=== PATIENT | male | born 1930 | race Caucasian/White ===

== ENCOUNTER 2018-04-02 18:27 | Inpatient (IN) | payer MEDICARE, BC ==
[~2018-04-02] VITALS: Ht 175.3 cm; Wt 64.0 kg
--- NOTE | 2018-04-02 18:45 | Emergency Room Report ---
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 Allergies: Coded Allergies: No Known Allergies (Unverified , 04/02/18) Patient History Past Medical History: see triage record Reviewed Nursing Documentation: PMH: Agreed; PSxH: Agreed Nursing Documentation-PMH Hx Hypertension: Yes Hx Diabetes: Yes Hx Dialysis: Yes - M-W-F Last 04/02/18 Review of Systems All Other Systems: negative except mentioned in HPI Physical Exam Vital Signs Date Time Temp Pulse Resp B/P (MAP) Pulse Ox O2 Delivery O2 Flow Rate FiO2 04/02/18 18:26 97.5 57 18 122/49 99 Room Air Sp02 EP Interpretation: reviewed, normal General Appearance: no apparent distress, alert, non-toxic Head: normocephalic Eyes: bilateral eye normal inspection, bilateral eye PERRL, bilateral eye EOMI ENT: normal ENT inspection, hearing grossly normal, normal pharynx, no angioedema, normal voice, moist mucus membranes Neck: normal inspection, full range of motion, supple, supple/symm/no masses Respiratory: chest non-tender, lungs clear, normal breath sounds, chest symmetrical, palpation of chest normal Cardiovascular #1: normal peripheral pulses, regular rate, rhythm Cardiovascular #2: 2+ radial (R), 2+ radial (L) Gastrointestinal: normal inspection, non tender, soft, no mass, no guarding, no rebound Rectal: deferred Genitourinary: normal inspection, no CVA tenderness Musculoskeletal: back normal, gait/station normal, normal range of motion, non- tender, no calf tenderness, Mireille's Sign negative, other - LUE AVF + thrill Neurologic: alert, responsive, 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 EKG Diagnostic Results EKG Time: 18:41 EP Interpretation: no st-t changes, no twi's Rhythm: NSR ST Segments: no acute changes Rhythm Strip Diag. Results Rhythm Strip Time: 18:45 EP Interpretation: yes Rate: 60 Rhythm: NSR, no PVC's, no ectopy Chest X-Ray Diagnostic Results Chest X-Ray Diagnostic Results : # of Views/Limited/Complete: 1 View Indication: Other - syncope EP Interpretation: Yes Interpretation: no consolidation, no effusion, no pneumothorax, no acute cardiopulmonary disease Impression: No acute disease Electronically Signed by: Angela Alvarado MD Last Vital Signs Date Time Temp Pulse Resp B/P (MAP) Pulse Ox O2 Delivery O2 Flow Rate FiO2 04/02/18 18:26 97.5 57 18 122/49 99 Room Air Disposition: ADMITTED INPATIENT Condition: Stable ANGELA ALVARADO M.D Apr 02, 2018 18:45
[2018-04-02] MEDS ORDERED: METOPROLOL TART25 MG ORAL (19:05)
[2018-04-02] MEDS ORDERED: DONEPEZIL HCL10 M2 ORAL (19:05)
[2018-04-02] MEDS ORDERED: CARDIAZEM CD240 MG PO (19:05)
[2018-04-02] MEDS ORDERED: vit D3 PO (19:05)
[2018-04-02] MEDS ORDERED: protegra PO (19:05)
[2018-04-02] MEDS ORDERED: HUMALOG SS (19:05)
[2018-04-02] MEDS ORDERED: ECONAZOLE NITRAT5 GM MC (19:05)
[2018-04-02] MEDS ORDERED: NEPHROVITE1 TAB ORAL (19:05)
[2018-04-02] MEDS ORDERED: OMEPRAZOLE40 M1 ORAL (19:05)
[2018-04-02] MEDS ORDERED: NYSTATIN15 GM TOPIC (19:05)
[2018-04-02] MEDS ORDERED: ATORVASTATIN CA20 MG ORAL (19:05)
[2018-04-02] MEDS ORDERED: TAMSULOSIN HCL0.4 MG ORAL (19:05)
[2018-04-02] MEDS ORDERED: LANTUS SOL100 UNIT/1 SUBQ (19:05)
[2018-04-02] MEDS ORDERED: PENTOXIFYLLINE400 MG ORAL (19:05)
[2018-04-02] MEDS ORDERED: ONDANSETRON ODT4 MG BC (19:05)
[2018-04-02] MEDS ORDERED: ADALAT CC30 MG ORAL (19:05)
[2018-04-02] MEDS ORDERED: TRIAMCINOLONE10 G1 MC (19:05)
[2018-04-02] MEDS ORDERED: FLUOCINONIDE-E15 G1 TP (19:05)
[2018-04-02] MEDS ORDERED: BRILINTA90 MG PO (19:05)
[2018-04-02] MEDS ORDERED: NORCO 5-325 TA1 EACH ORAL (19:05)
[2018-04-02] MEDS ORDERED: GLUCOSAMINE &1 EAC2 PO (19:05)
[2018-04-02] MEDS ORDERED: ESCITALOPRAM OX20 MG ORAL (19:05)
[2018-04-02] MEDS ORDERED: ASPIR 8181 MG ORAL (19:05)
[2018-04-02 19:53] LABS: BASOPHILS % (AUTO) 1.1 % (0.0-2.0); EOSINOPHILS % (AUTO) 7.2 % (0.0-3.0); HEMATOCRIT 38.4 % (42.0-52.0); HEMOGLOBIN 12.5 G/DL (14.2-18.0); LYMPHOCYTES % (AUTO) 10.2 % (20.0-45.0); MEAN CORPUSCULAR VOLUME 96 FL (80-99); MONOCYTES % (AUTO) 9.3 % (1.0-10.0); NEUTROPHILS % (AUTO) 72.2 % (45.0-75.0); PLATELET COUNT 129 K/UL (150-450); RED BLOOD COUNT 4.01 M/UL (4.70-6.10); RED CELL DISTRIBUTION WIDTH 14.8 % (11.6-14.8); WHITE BLOOD COUNT 8.6 K/UL (4.8-10.8)
[2018-04-02 20:13] LABS: ANION GAP 14 mmol/L (5-15); BLOOD UREA NITROGEN 23 mg/dL (7-18); CALCIUM 9.1 MG/DL (8.5-10.1); CARBON DIOXIDE 25 MMOL/L (21-32); CHLORIDE 98 MMOL/L (98-107); CREATININE 3.3 MG/DL (0.55-1.30); POTASSIUM 4.4 MMOL/L (3.5-5.1); SODIUM 137 MMOL/L (136-145)
[2018-04-02 20:26] LABS: ALANINE AMINOTRANSFERASE 31 U/L (12-78); ALBUMIN 3.7 G/DL (3.4-5.0); ALBUMIN/GLOBULIN RATIO 0.9 (1.0-2.7); ALKALINE PHOSPHATASE 60 U/L (46-116); ASPARTATE AMINO TRANSFERASE 25 U/L (15-37); BILIRUBIN,TOTAL 0.5 MG/DL (0.2-1.0); CKMB 0.5 NG/ML (0.0-3.6); CREATINE KINASE 38 U/L (26-308)
[2018-04-02 20:30] VITALS: BP 124/57
[2018-04-02] MEDS ORDERED: Isovue-370 150ml vial INJ PRN (21:30)
[2018-04-02 22:15] VITALS: BP 124/87
[2018-04-03] VITALS (9 sets, daily range): BP systolic 111–141; BP diastolic 52–73
[2018-04-03] MEDS ORDERED: NovoLOG Insulin Flexpen SUBQ SCH (06:30)
[2018-04-03] MEDS: NovoLOG Insulin Flexpen SUBQ SCH ×4 (06:46→22:48)
[2018-04-03] MEDS: Aspirin Baby 81mg ORAL SCH (08:46)
[2018-04-03] MEDS ORDERED: Metoprolol Succinate XL 50mg tab ORAL SCH (09:00)
--- NOTE | 2018-04-03 09:23 | Diagnostic Imaging Report ---
Indication: Chest pain Technique: One view of the chest Comparison: none Findings: No acute infiltrates, effusions, or congestion. Tortuous calcified aorta. Normal heart size. Upper mediastinum unremarkable. Impression: No acute process.
--- NOTE | 2018-04-03 10:10 | Diagnostic Imaging Report ---
ndication: Shortness of breath Technique: IV administration nonionic contrast. Spiral acquisitions obtained from the lung bases to the lung apices. Multiplanar and 3-D reconstructions were generated. Total dose length product 693 mGycm. CTDIvol(s) 18.62 mGy. Dose reduction achieved using automated exposure control Comparison: none Findings: There is slight image degradation due to motion artifact. There is good quality opacification of the pulmonary arteries. No intraluminal filling defects or other findings to suggest acute pulmonary embolus are demonstrated. No pulmonary arterial dilatation demonstrated. No thoracic aortic aneurysm or dissection. No right ventricular dilatation. Classic branching anatomy of the great neck vessels is noted. There is equivocal thickening of the major fissure on the left. There is some scarring at both lung bases. No acute infiltrates, effusions, masses, nodules, or congestion. There is mild hyperinflation. A bulla is seen in the subpleural right middle lobe. Mildly prominent reticular opacities are seen in the right lung apex subpleural region. Normal heart size. There is trace pericardial thickening versus fluid anteriorly. No mediastinal or hilar mass or adenopathy. Unremarkable thyroid. No axillary or chest wall mass or adenopathy. Included upper abdominal anatomy demonstrates cholecystectomy clips. Impression: Negative for acute pulmonary embolus or other acute pulmonary pathology Nonspecific trace right upper lobe subpleural reticular opacities, could indicate acute infection or chronic postinflammatory changes Other chronic changes, as described COPD changes Trace pericardial thickening versus fluid Evidence of prior cholecystectomy This agrees with the preliminary interpretation provided overnight by [facility] teleradiology service. The CT scanner at [facility] is accredited by the [employer] and the scans are performed using protocols designed to limit radiation exposure to as low as reasonably achievable to attain images of sufficient resolution adequate for diagnostic evaluation.
[2018-04-03 10:24] LABS: BASOPHILS % (AUTO) 1.2 % (0.0-2.0); HEMATOCRIT 35.7 % (42.0-52.0); HEMOGLOBIN 11.7 G/DL (14.2-18.0); LYMPHOCYTES % (AUTO) 20.2 % (20.0-45.0); MEAN CORPUSCULAR VOLUME 99 FL (80-99); MONOCYTES % (AUTO) 10.2 % (1.0-10.0); NEUTROPHILS % (AUTO) 57.3 % (45.0-75.0); PLATELET COUNT 146 K/UL (150-450); RED BLOOD COUNT 3.59 M/UL (4.70-6.10); WHITE BLOOD COUNT 6.8 K/UL (4.8-10.8)
[2018-04-03 11:01] LABS: ALANINE AMINOTRANSFERASE 27 U/L (12-78); ALBUMIN 3.4 G/DL (3.4-5.0); ALBUMIN/GLOBULIN RATIO 0.9 (1.0-2.7); ALKALINE PHOSPHATASE 58 U/L (46-116); ANION GAP 13 mmol/L (5-15); ASPARTATE AMINO TRANSFERASE 16 U/L (15-37); BILIRUBIN,TOTAL 0.3 MG/DL (0.2-1.0); BLOOD UREA NITROGEN 34 mg/dL (7-18); CARBON DIOXIDE 26 MMOL/L (21-32); CHLORIDE 97 MMOL/L (98-107); CREATININE 4.4 MG/DL (0.55-1.30); POTASSIUM 4.7 MMOL/L (3.5-5.1); SODIUM 136 MMOL/L (136-145)
--- NOTE | 2018-04-03 16:01 | Cardiology Report ---
APPROVED REPORT EKG Measurement Heart [id number] Sinus bradycardia Prolonged QT Abnormal ECG
[2018-04-03] MEDS: Atorvastatin 20mg tab ORAL SCH ×2 (21:00→22:47)
[2018-04-03] MEDS: Tamsulosin 0.4mg cap ORAL SCH ×2 (21:00→22:46)
[2018-04-03] MEDS ORDERED: Levemir Flexpen SUBQ SCH (21:00)
[2018-04-04] VITALS (7 sets, daily range): BP systolic 117–161; BP diastolic 58–75
--- NOTE | 2018-04-04 00:15 | Consultation ---
DATE OF CONSULTATION: 04/03/2018 NEPHROLOGY CONSULTATION CONSULTING PHYSICIAN: Zachary Argueta M.D. REFERRING PHYSICIAN: Krishan Morales M.D. REASON FOR CONSULTATION: End-stage renal disease. HISTORY OF PRESENT ILLNESS: The patient is an 87-year-old male who gets dialysis on Monday, Monday, and Monday, and Monday after dialysis in the evening, he said he felt sort of dizzy, staggering, and weak, and paramedics were called and he was brought to the emergency room. It is not clear if he had any true syncope apparently, he thinks he did not pass out. However, in view of the above, he was admitted to the hospital for further evaluation. He denies chest pain, palpitations, shortness of breath, nausea, or vomiting. ALLERGIES: None known. SURGERIES: Appendectomy and gallbladder. He also had "vein procedures on his wrist and groin, but he cannot describe." HABITS: He is a nondrinker and nonsmoker at this time. MEDICATIONS AT HOME: Reviewed on the computer. He cannot give it to me include aspirin, atorvastatin, diltiazem, donepezil, econazole cream, Lexapro, fluocinonide cream, glucosamine chondroitin, [place], Lantus 7 units, metoprolol, nifedipine, Nystatin, omeprazole, ondansetron, pentoxifylline, tamsulosin, Brilinta, triamcinolone, Nephro-Gi. SYSTEM REVIEW: HEAD, EYES, EARS, NOSE, AND THROAT: He has diminished hearing. He says his vision is good. ENDOCRINE: History of diabetes. No known thyroid disease. PULMONARY: No asthma, TB, or chronic cough. CARDIAC: Denies angina or [place]. He may have had procedures for peripheral vascular disease. GASTROINTESTINAL: No nausea, vomiting, or abdominal pain. No known hepatitis. GENITOURINARY: No dysuria or hematuria. NEUROLOGIC: No CVA or seizures. MUSCULOSKELETAL: No chronic joint pain. He uses a cane periodically. PHYSICAL EXAMINATION: GENERAL: The patient is alert, thin man, in no acute distress. VITAL SIGNS: Temperature 98.4, blood pressure 111/52, O2 saturation 99%, heart rate 75. HEAD, EYES, EARS, NOSE, AND THROAT: Sclerae are nonicteric. Ocular motions intact in all directions. Oral mucosa slightly dry. NECK: No adenopathy or thyroid enlargement. LUNGS: Clear. HEART: Rhythm is regular. I hear no murmur. ABDOMEN: Soft without organomegaly or masses. EXTREMITIES: No edema, cyanosis, or clubbing. There is a well-functioning AV fistula on the left upper arm. NEUROLOGIC: He is alert and responsive. Ocular motions intact in all directions. Smile symmetric. Tongue is midline. He moves all extremities. Plantar showed no response. Speech is clear. LABORATORY AND DIAGNOSTIC DATA: Pertinent laboratory show white count of 6.8 and hemoglobin of 11.7. Sodium 136, potassium 4.7, BUN 34, and creatinine 4.4. Troponin x2 is negative. Albumin is 3.4. Liver enzymes are normal. Glucose 171 and 112. IMPRESSION: 1. Dizziness, possible syncope or near syncope. Etiologies could be orthostatic hypotension, hypoglycemia, arrhythmias, or coronary artery disease. 2. End-stage renal disease. 3. Likely history of peripheral vascular disease. 4. Diabetes. 5. Advanced age. PLAN: The patient will be watched closely for any cardiac disease, orthostatic hypotension, and diabetic management. I will arrange dialysis for maintenance. Zachary Argueta M.D. : CARMEN JOB#: [id number] CC:
--- NOTE | 2018-04-04 01:30 | Progress Note ---
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 Blood pressure parameters remain low normal range, off most of his usual medications. No pauses or bradyarrhythmias. PHYSICAL EXAMINATION: VITAL SIGNS: Blood pressure 130/65, pulse 75, and respirations 20. NECK: Carotid upstrokes without delay. No bruits. LUNGS: Clear. CARDIAC: Regular rhythm rate. Normal S1, S2 with a 1/6 systolic murmur at the base. ABDOMEN: Soft. EXTREMITIES: No edema. LABORATORY DATA: White count 6.8, hemoglobin 11.7. BUN 34, creatinine 4.4. Troponin negative. TSH 2.8. IMPRESSION: 1. Orthostatic syncope due to medications. 2. End-stage renal disease. 3. Hypertensive heart disease. 4. Coronary artery disease with stable angina and history of coronary stent. 5. Hyperlipidemia, on statin drug. PLAN: 1. Continue dual anti-platelet therapy, statin drug. 2. Check lipid panel. 3. Continue holding nifedipine and diltiazem, and titrate regimen accordingly. 4. Monitor orthostatics. 5. Hemodialysis with ultrafiltration per usual schedule tomorrow and reassess medication regimen. Krishan Morales M.D. DR: SHERIDAN JOB#: [id number] CC:
[2018-04-04] MEDS: Levemir Flexpen SUBQ SCH ×2 (01:34→20:24)
--- NOTE | 2018-04-04 01:45 | History and Physical Report ---
DATE OF ADMISSION: 04/03/2018 REASON FOR ADMISSION: Syncope in the setting of end-stage renal disease. HISTORY OF PRESENT ILLNESS: This is an 87-year-old white male. He has end-stage renal disease and is on hemodialysis on Monday, Monday, and Monday. He had a syncopal episode today, which is described as a dizzy spell one. He was walking to the table. He apparently sat down at the table and passed out, but did not fall down or hurt himself. He was transiently after dialysis today, but denies any other associated symptoms. He specifically denies chest pain or shortness of breath. He does take a multitude of blood pressure medications and has been compliant. He was seen in the emergency room, hospitalization was initiated. PAST MEDICAL HISTORY: Includes hypertension, type 2 diabetes mellitus, end-stage renal disease, and coronary artery disease with history of coronary stent. ALLERGIES: None known. MEDICATIONS: Reviewed and reconciled. SOCIAL HISTORY: He denies smoking, alcohol, or substance abuse. FAMILY HISTORY: Noncontributory. REVIEW OF SYSTEMS: No fevers. No loss of vision or hearing. No history of retinopathy. No prior history of myocardial infarction. His blood pressure has been difficult to control in the past. He does have high cholesterol. He is on oral therapy for diabetes. There is no history of seizure or stroke. He denies any melena, bright red blood per rectum, or change in bowel habits. There is a history of prostatic hypertrophy. PHYSICAL EXAMINATION: VITAL SIGNS: Blood pressure 122/49, pulse 57, respirations 18, and afebrile. HEENT: Conjunctivae are pink. Sclerae are anicteric. Oropharynx clear. NECK: Supple. Jugular venous pressure normal. No bruits. LUNGS: Clear. CARDIAC: Regular rhythm and rate. Normal S1 and S2 with a fourth heart sound. There is a 1/6 systolic murmur at the base. ABDOMEN: Soft and nontender. EXTREMITIES: Good pulses. No edema. There is a palpable bruit over the dialysis fistula. NEUROLOGIC: Reveals symmetric strength. No motor deficit. IMAGING DATA: CT angiogram of the chest was obtained in the emergency room that study revealed COPD, negative for pulmonary embolus, right upper lobe reticular opacities, prior cholecystectomy. EKG with sinus rhythm, nonspecific ST-T wave changes. LABORATORY DATA: White count 8.6 and hemoglobin 12.5. Sodium 137, potassium 4.4, bicarbonate 25, BUN 23, creatinine 3.3, and glucose 171. Troponin 0. IMPRESSION: 1. Syncopal episode, probable orthostatic in etiology and likely due to multiple antihypertensive drugs in setting of post hemodialysis related hypovolemia. 2. Insulin-requiring diabetes mellitus. 3. Hyperlipidemia, on statin drug. 4. Sinus bradycardia, on beta-sy. 5. Peripheral artery disease. 6. Coronary artery disease with history of coronary stent with chronic stable angina. 7. Cerebrovascular disease. PLAN: 1. Orthostatic monitoring. 2. Cardiac monitoring. 3. Renal consult for hemodialysis. 4. Hold nifedipine. 5. Hold parameters for metoprolol based on heart rate. 6. Titrate insulin. 7. Hold diltiazem. 8. Continue statin drug. 9. Check lipid panel. 10. Continue dual anti-platelet therapy. 11. Reassess [place]. Krishan Morales M.D. DR: NAKIA JOB#: [id number] CC:
[2018-04-04] MEDS ORDERED: Heparin Sod 1000 units/ml 10ml IV PRN (06:00)
[2018-04-04] MEDS: NovoLOG Insulin Flexpen SUBQ SCH ×4 (07:06→20:24)
[2018-04-04 08:00] LABS: BASOPHILS % (AUTO) 1.2 % (0.0-2.0); HEMATOCRIT 36.3 % (42.0-52.0); HEMOGLOBIN 11.9 G/DL (14.2-18.0); LYMPHOCYTES % (AUTO) 29.1 % (20.0-45.0); MEAN CORPUSCULAR VOLUME 99 FL (80-99); MONOCYTES % (AUTO) 9.8 % (1.0-10.0); NEUTROPHILS % (AUTO) 45.9 % (45.0-75.0); PLATELET COUNT 167 K/UL (150-450); RED BLOOD COUNT 3.67 M/UL (4.70-6.10); RED CELL DISTRIBUTION WIDTH 14.5 % (11.6-14.8); WHITE BLOOD COUNT 6.6 K/UL (4.8-10.8)
[2018-04-04 08:12] LABS: ANION GAP 12 mmol/L (5-15); BLOOD UREA NITROGEN 47 mg/dL (7-18); CALCIUM 8.9 MG/DL (8.5-10.1); CARBON DIOXIDE 25 MMOL/L (21-32); CHLORIDE 100 MMOL/L (98-107); CREATININE 5.5 MG/DL (0.55-1.30); POTASSIUM 4.6 MMOL/L (3.5-5.1); SODIUM 137 MMOL/L (136-145)
[2018-04-04] MEDS: Aspirin Baby 81mg ORAL SCH (08:14)
[2018-04-04] MEDS: Metoprolol Succinate XL 50mg tab ORAL SCH (08:16)
[2018-04-04 08:45] LABS: CHOLESTEROL 156 MG/DL (< 200); HDL CHOLESTEROL 52 MG/DL (40-60); TRIGLYCERIDES 155 MG/DL (30-150)
--- NOTE | 2018-04-04 16:18 | Nephrology Progress Note ---
Assessment/Plan Problem List: (1) Diabetes (2) End-stage renal disease (3) Syncope Plan feels better, stable on dialysis, uf -1000 Subjective Constitutional: Reports: weakness HEENT: Reports: no symptoms Genitourinary: Reports: no symptoms Neurologic/Psychiatric: Reports: no symptoms Objective Objective Last 24 Hour Vital Signs Date Time Temp Pulse Resp B/P (MAP) Pulse Ox O2 Delivery O2 Flow Rate FiO2 04/04/18 13:08 129/74 04/04/18 12:00 70 04/04/18 12:00 97.2 70 18 129/74 (92) 98 04/04/18 09:00 Room Air 04/04/18 08:16 88 139/75 04/04/18 08:14 139/75 04/04/18 08:00 71 04/04/18 08:00 98.6 88 18 139/75 (96) 96 04/04/18 04:20 68 04/04/18 04:10 73 04/04/18 04:05 86 04/04/18 04:00 88 04/04/18 04:00 98.9 88 18 117/59 (78) 97 04/04/18 00:11 85 04/04/18 00:00 98.2 79 18 151/69 (96) 97 04/04/18 00:00 79 04/03/18 21:00 Room Air 04/03/18 20:00 81 04/03/18 20:00 98.7 81 18 141/73 (95) 96 04/03/18 19:52 87 04/03/18 18:04 111/52 Intake and Output 04/03/18 04/04/18 19:00 07:00 Intake Total 740 ml Balance 740 ml Intake Oral 740 ml # Voids 3 2 Laboratory Tests 04/04/18 06:15: White Blood Count 6.6, Red Blood Count 3.67L, Hemoglobin 11.9L, Hematocrit 36.3L , Mean Corpuscular Volume 99, Mean Corpuscular Hemoglobin 32.5H, Mean Corpuscular Hemoglobin Concent 32.8, Red Cell Distribution Width 14.5, Platelet Count 167, Mean Platelet Volume 7.3, Neutrophils (%) (Auto) 45.9, Lymphocytes (% ) (Auto) 29.1, Monocytes (%) (Auto) 9.8, Eosinophils (%) (Auto) 14.0H, Basophils (%) (Auto) 1.2, Sodium Level 137, Potassium Level 4.6, Chloride Level 100, Carbon Dioxide Level 25, Anion Gap 12, Blood Urea Nitrogen 47H, Creatinine 5.5H, Estimat Glomerular Filtration Rate , Glucose Level 120H, Calcium Level 8.9 , Pro-B-Type Natriuretic Peptide 2789H, Triglycerides Level 155H, Cholesterol Level 156, LDL Cholesterol 82, HDL Cholesterol 52, Cholesterol/HDL Ratio 3.0L Height (Feet): 5 Height (Inches): 9.00 Weight (Pounds): 141 General Appearance: no apparent distress, alert EENT: normal ENT inspection Neck: normal alignment, supple Cardiovascular: normal rate, regular rhythm Respiratory/Chest: lungs clear Abdomen: non tender, soft Extremities: non-tender 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
[2018-04-04] MEDS: Atorvastatin 20mg tab ORAL SCH (20:21)
[2018-04-04] MEDS: Tamsulosin 0.4mg cap ORAL SCH (20:21)
[2018-04-04] MEDS ORDERED: Levemir Flexpen SUBQ SCH (21:00)
--- NOTE | 2018-04-04 22:45 | Progress Note ---
CARDIOLOGY AND INTERNAL MEDICINE PROGRESS NOTE DATE: 04/04/2018 SUBJECTIVE: The patient has no new complaints. He is status post hemodialysis with ultrafiltration. He denies dizziness. Blood pressure parameters are stable. Some of his cardiac medications have not been initiated since admission. OBJECTIVE: VITAL SIGNS: Blood pressure 137/68, pulse 67, respirations 18, and afebrile. LUNGS: Clear. CARDIAC: Regular. Normal S1, S2 with a fourth heart sound and a 1/6 systolic apical murmur. ABDOMEN: Soft, nontender. EXTREMITIES: No edema. DIAGNOSTIC DATA: CAT scan of the chest revealed COPD, right upper lobe reticular opacity. No pulmonary embolus. IMPRESSION: 1. Orthostatic syncope. 2. End-stage renal disease. 3. Acute on chronic diastolic congestive heart failure. 4. Fall risk. 5. Insulin requiring diabetes mellitus. 6. Sinus bradycardia, on beta-blockers. 7. Coronary artery disease with stable angina. PLAN: 1. Avoid tighter blood pressure control. 2. No additional cardiovascular medications to be started at this time. 3. Hemodialysis with ultrafiltration per Nephrology. 4. Mobilize. 5. Echocardiogram. 6. Discharge planning. Krishan Morales M.D. DR: SHERIDAN JOB#: [id number] CC:
[2018-04-05 03:47] VITALS: BP 135/60
[2018-04-05] MEDS: NovoLOG Insulin Flexpen SUBQ SCH (05:47)
[2018-04-05 08:00] VITALS: BP 131/62
[2018-04-05] MEDS: Aspirin Baby 81mg ORAL SCH (08:08)
[2018-04-05 08:13] VITALS: BP 131/62
[2018-04-05] MEDS: Metoprolol Succinate XL 50mg tab ORAL SCH (08:13)
--- NOTE | 2018-04-05 08:56 | Nephrology Progress Note ---
Assessment/Plan Problem List: (1) Diabetes (2) End-stage renal disease (3) Syncope Plan feels better, stable on dialysis 04/04 , uf -1000 no fluid overload, echo in process Subjective Constitutional: Reports: weakness HEENT: Reports: no symptoms Genitourinary: Reports: no symptoms Neurologic/Psychiatric: Reports: no symptoms Objective Objective Last 24 Hour Vital Signs Date Time Temp Pulse Resp B/P (MAP) Pulse Ox O2 Delivery O2 Flow Rate FiO2 04/05/18 08:13 63 131/62 04/05/18 08:13 131/62 04/05/18 04:00 59 04/05/18 03:50 82 04/05/18 03:47 97.3 66 18 135/60 (85) 98 04/05/18 03:45 86 04/05/18 03:40 66 04/05/18 00:00 67 04/04/18 23:52 98.1 63 19 139/58 (85) 96 04/04/18 21:00 Room Air 04/04/18 20:10 78 04/04/18 20:05 86 04/04/18 20:00 98.0 67 18 137/68 (91) 96 04/04/18 20:00 66 04/04/18 20:00 67 04/04/18 18:04 140/71 04/04/18 16:00 66 04/04/18 16:00 66 70 80 04/04/18 16:00 97.4 66 18 140/71 (94) 96 04/04/18 13:08 129/74 04/04/18 12:00 70 04/04/18 12:00 97.2 70 18 129/74 (92) 98 04/04/18 12:00 68 72 80 04/04/18 09:00 Room Air Intake and Output 04/04/18 04/05/18 19:00 07:00 Intake Total 360 ml Output Total 250 ml Balance 110 ml Intake Oral 360 ml Output Urine Total 250 ml # Voids 2 4 Height (Feet): 5 Height (Inches): 9.00 Weight (Pounds): 141 General Appearance: no apparent distress, alert EENT: normal ENT inspection Neck: normal alignment Cardiovascular: normal rate, regular rhythm Respiratory/Chest: lungs clear Abdomen: normal bowel sounds, non tender Extremities: other - no edema 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
--- NOTE | 2018-04-06 01:45 | Progress Note ---
DATE: 04/05/2018 INTERNAL MEDICINE PROGRESS NOTE SUBJECTIVE: The patient had hemodialysis yesterday. No new complaints. OBJECTIVE: VITAL SIGNS: Vitals are stable. Blood pressure 131/62, pulse 63, and respiratory rate 18. LUNGS: Clear. CARDIAC: Regular. Normal S1 and S2 with a fourth heart sound. ABDOMEN: Soft. No edema. Palpable bruit over dialysis access. IMPRESSION: 1. Orthostatic syncope due to medications. 2. End-stage renal disease. 3. Acute on chronic diastolic congestive heart failure. 4. Fall risk. 5. Asymptomatic sinus bradycardia due to beta-sy therapy. 6. Insulin-requiring diabetes with good control of glucose. 7. Coronary artery disease with history of coronary artery bypass graft and stable angina. PLAN: Discharge planning today. The patient was advised ____ to continue his current medication regimen without resuming all pre-admit drugs ____ leading to his orthostatic hypotensive episode. Krishan Morales M.D. DR: JAIRO JOB#: [id number] CC:
--- NOTE | 2018-04-06 09:53 | Discharge Summary ---
Discharge Summary Discharge Summary _ DATE OF ADMISSION: 04/03/2018 DATE OF DISCHARGE: 04/05/2018 DISCHARGED BY: Dr. Krishan Roa CONSULTANTS: Dr. Zachary Argueta BRIEF HOSPITAL COURSE: Patient is an 87-year-old white male, with history of end-stage renal disease on hemodialysis Monday, Monday and Monday. He had a syncopal episode, described as a dizzy spell. He was walking to the table. He apparently sat down at the table and passed out, but did not fall or hurt himself. He denied any chest pain or shortness of breath. He takes a multitude of blood pressure medications and has been compliant. On evaluation at the ED, did not show any leukocytosis, hemoglobin was 12, hematocrit 38. BUN was 23, creatinine 3.3. Troponin was negative. D-dimer was elevated to 0.92. Chest x-ray was without acute process. CTA of the chest was negative for acute pulmonary embolus or acute pulmonary pathology. He was admitted for workup for syncope. Orthostatics were monitored. Nifedipine and diltiazem was initially placed on hold. He was given antiplatelet therapy. He was continued on Toprol 25 mg daily. Glucose was monitored and was placed on insulin sliding scale. He was given Levemir 7 units q. at bedtime. Echocardiogram was done. He was continued on inpatient hemodialysis with ultrafiltration. He was given PT mobility. He was eventually cleared for discharge home advised to continue all current medication regimen without resuming all pre-admit drugs to avoid orthostatic hypotension. FINAL DIAGNOSES: Orthostatic syncope due to medications End-stage renal disease on hemodialysis Acute on chronic diastolic congestive heart failure Fall risk Asymptomatic sinus bradycardia due to beta-sy therapy Insulin requiring diabetes with good control of glucose Coronary artery disease with history of coronary artery bypass graft and stable angina DISPOSITION: Patient was discharged home. DISCHARGE MEDICATIONS: Refer to Discharge Medication List. DISCHARGE INSTRUCTIONS: Follow-up in a week. I have been assigned to dictate discharge summary on this account, and I was not involved in the patient's management. Nikki Doran NP Apr 06, 2018 09:53
== END 2018-04-05 12:24 | disposition home or self-care (01) | DRG 312 ==
LOC: EDBD 18:27 → EMR 19:00 → 2E 04-03 00:22 → EDBEDREQ 04-03 00:48 → 2E 04-04 19:28
PROC: 5A1D70Z Performance of Urinary Filtration, Intermittent, Less than 6 Hours Per Day (ICD-10-PCS; principal; 2018-04-04)
DX: I95.2 Hypotension due to drugs (principal); N18.6 End stage renal disease; I50.33 Acute on chronic diastolic (congestive) heart failure; I13.2 Hypertensive heart and chronic kidney disease with heart failure and with stage 5 chronic kidney disease, or end stage renal disease; T46.5X5A Adverse effect of other antihypertensive drugs, initial encounter; E11.22 Type 2 diabetes mellitus with diabetic chronic kidney disease; Z99.2 Dependence on renal dialysis; Z79.4 Long term (current) use of insulin; R00.1 Bradycardia, unspecified; T46.1X5A Adverse effect of calcium-channel blockers, initial encounter; I25.118 Atherosclerotic heart disease of native coronary artery with other forms of angina pectoris; Z95.1 Presence of aortocoronary bypass graft; E78.5 Hyperlipidemia, unspecified
CPT/HCPCS: 36415; 71045; 71275; 80048; 80053; 80061; 82550; 82553; 82962; 83880; 84443; 84484; 85025; 85379; 87081; 93005; 93306; 96372; 99285; J1815; S5561